=== PATIENT | male | born 1960 | race Caucasian/White ===

== ENCOUNTER → 2016-07-06 | Outpatient (CLI) | payer OTHER ==
[~2016-07-06] MED LIST: CYCL10TA9 PO; DICL75TA2 PO; DOCU-143 PO; HYDR30CR71 RC; LEVO75TA6 PO; METH4TAB PO; MIRT15TA6 PO; SERT50TA2 PO; TRAM-42 PO
--- NOTE | 2016-07-06 12:19 | Diagnostic Imaging Report ---
Right hip. INDICATION: Hip pain. 2 views were obtained. There are no prior right hip studies available for comparison. This exam is less than optimal as the patient is wearing close. FINDINGS: No fracture, dislocation or acute bony abnormality evident. The hip joint is fairly well-maintained and shows only mild degenerative disease. The soft tissues are unremarkable for an acute abnormality. There are several phleboliths present low in the pelvis on the right. IMPRESSION: There is no evidence for an acute bony abnormality. Dictated by: Dictated on workstation # [id number]
== END ==
LOC: RT 09:32
PROVIDERS: ATTEND Neuromusculoskeletal Medicine, Sports Medicine
DX: Z02.71 Encounter for disability determination (principal)
CPT/HCPCS: 73502; 94060

== ENCOUNTER → 2017-04-10 | Outpatient (CLI) | payer MEDICAID ==
--- NOTE | 2017-04-10 12:39 | Diagnostic Imaging Report ---
PROCEDURE: MRI lumbar spine. TECHNIQUE: Multiplanar, multisequence MRI of the lumbar spine was performed without contrast. INDICATION: Low back pain after heavy lifting. COMPARISON: Comparison made with prior examination from 02/20/2016. FINDINGS: The alignment of the lumbar spine is normal. The vertebral body heights are well maintained. There is no spondylolysis or spondylolisthesis. No fractures are identified. Conus medullaris is seen at L1 and is normal in appearance. The T12-L1 disc is unremarkable. The L1-L2 disc is unremarkable. The L2-L3 disc is unremarkable. There is some hypertrophic degenerative facet disease at this level. At L3-L4, there is slight loss of disc height and signal intensity. There is some broad-based annular bulging, facet disease, and thickening of the ligamentum flavum. There is mild central spinal stenosis with encroachment upon the lateral recess bilaterally. There is minimal bilateral neuroforaminal encroachment. At L4-L5, there is loss of disc height and signal intensity. There is broad-based annular bulging, facet disease, and thickening of the ligamentum flavum. There is [id number]-he-[id number] central spinal stenosis with encroachment upon the lateral recess bilaterally. There is moderate bilateral neuroforaminal encroachment, right greater than left. There is also some increased T2 signal intensity within the posterior central annulus, suspect for annular fissural tear. At L5-S1, there is broad-based annular bulging. There is slight effacement of the ventral thecal sac and some minimal neuroforaminal encroachment. The abdominal aorta is nonaneurysmal. The soft tissues are unremarkable. IMPRESSION: Multilevel lower lumbar degenerative disc disease, as detailed above. Dictated by: Dictated on workstation # [id number]
== END ==
LOC: RAD 11:24
PROVIDERS: ATTEND Anesthesiology
DX: M48.061 Spinal stenosis, lumbar region without neurogenic claudication (principal); M51.17 Intervertebral disc disorders with radiculopathy, lumbosacral region; M47.26 Other spondylosis with radiculopathy, lumbar region; X50.9XXA Other and unspecified overexertion or strenuous movements or postures, initial encounter
CPT/HCPCS: 72148

== ENCOUNTER 2020-01-03 06:41 | Emergency (ER) | payer MEDICAID ==
[~2020-01-03] VITALS: Ht 177 cm; Wt 54.0 kg
[2020-01-03 06:50] VITALS: BP 139/110
--- NOTE | 2020-01-03 07:12 | ED EENT ---
History of Present Illness General Stated Complaint: HARD TO SWALLOW,STS SMOKERS COUGH Source: patient Exam Limitations: no limitations History of Present Illness Date Seen by Provider: Jan 03, 2020 Time Seen by Provider: 06:57 Initial Comments Patient is a 59-year-old male who presents to the emergency department today with a chief complaint of painful swallowing. Patient relates that 4 to 5 days ago he had a coughing spell and he had sudden severe pain in his throat area. He states he has been "sore ever since". He states his throat is tender when he swallows. He is suffering from some sinus drainage and he states he has been the most discomfort at this point on the left side of his throat. He states that gargling with cold water seem to help a little bit this morning. He denies any voice changes or hoarseness. He denies any hemoptysis. He denies any shortness of breath. He is never had an episode like this before. He has a history of hyperthyroidism status post radiation treatment and is currently on thyroid replacement medications. He was able to take these medications this morning. History of severe acid reflux status post hiatal hernia replacement doing well. Patient does smoke cigarettes occasional THC and occasional alcohol. All other review of systems reviewed negative except as stated above. Timing/Duration: abrupt Location: throat Prearrival Treatment: no prearrival treatment Modifying Factors: Improves With Other (Cold water gargles) Associated Symptoms: No drooling, No facial pain/swelling, No fever, No malaise, No sinus infection; sore throat; No voice change Allergies and Home Medications Allergies Coded Allergies: No Known Drug Allergies (Unverified , 11/11/15) Home Medications Cyclobenzaprine HCl 10 Mg Tablet, 10 MG PO Q8H Prescribed by: ALEJANDRINA YATES on 02/14/16 1330 Docusate Sodium 100 Mg Capsule, 100 MG PO DAILY Prescribed by: CHRISSY SEVERINO on 10/12/15 1530 Levothyroxine Sodium 75 Mcg Tablet, 75 MCG PO DAILY, (Reported) Methylprednisolone 4 Mg Tab.ds.pk, 4 MG PO UD Prescribed by: ALEJANDRINA YATES on 02/14/16 133 Sertraline HCl 50 Mg Tablet, 50 MG PO DAILY, (Reported) Tramadol HCl 50 Mg Tablet, 50 MG PO Q4H Prescribed by: ALEJANDRINA YATES on 02/14/16 1330 Patient Home Medication List Home Medication List Reviewed: Yes Review of Systems Review of Systems Constitutional: no symptoms reported Eyes: No Symptoms Reported Ears: No Symptoms Reported Nose: no symptoms reported Mouth: denies clots, denies swelling, denies bloody discharge, denies serosanguinous discharge Throat: see HPI, pain; denies neck stiffness, denies hoarse, denies aphonia, denies muffled; painful swallowing; denies difficulty with fluids Respiratory: no symptoms reported; No dyspnea on exertion Cardiovascular: no symptoms reported; No chest pain Gastrointestinal: no symptoms reported Musculoskeletal: no symptoms reported Skin: no symptoms reported Neurological: No Symptoms Reported Hematologic/Lymphatic: Swollen Glands (Left-sided throat) All Other Systems Reviewed Negative Unless Noted: Yes Past Cfneams-Srvjbp-Trhkaw Hx Patient Social History Recreational Drug Use: Yes Drug of Choice: THC Smoking Status: Current Everyday Smoker Type Used: Cigarettes Recent Foreign Travel: No Contact w/Someone Who Travel: No Recent Hopitalizations: No Seasonal Allergies Seasonal Allergies: No Past Medical History Abdominal COPD Prostate Problems Hemorrhoids Chronic Back Pain Hypothyroidsim Physical Exam Vital Signs Vital Signs - First Documented 01/03/20 06:50 Temp 36.6 Pulse 70 Resp 16 B/P (MAP) 139/110 (120) Pulse Ox 100 Height, Weight, BMI Height: 5'10.00" Weight: 130lbs. 0.0oz. [id number]; 16.4 BMI Method:Stated General Appearance: WD/WN, no apparent distress Eyes: bilateral eye normal inspection, bilateral eye PERRL, bilateral eye EOMI Ears: bilateral ear auricle normal Nose: normal inspection Mouth/Throat: normal mouth inspection, pharynx normal; No excessive drooling; pharynx tenderness; No tongue swollen, No tonsillar exudate, No tonsillar swelling, No trismus, No uvula swelling, No voice changes Neck: full range of motion, supple, lymphadenopathy (L) (1 cm lymph node palpable just submandibular on the left, no fluctuance, no overlying erythema) Cardiovascular: normal peripheral pulses Respiratory: chest non-tender, lungs clear, normal breath sounds, no respiratory distress, no accessory muscle use Neurologic/Psychiatric: 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 Patient was concerned today for a possible "ruptured tonsil". Evaluation today includes a physical exam. Remarkable for some left- sided submandibular lymphadenopathy. No evidence for pneumothorax, subcutaneous emphysema, hemorrhage, or any other acute/life-threatening pathology. Patient is strongly counseled on smoking cessation. He is strongly encouraged to follow-up with his primary care physician regarding the swollen lymph node underneath his left mandible. He verbalized understanding all questions are sought and answered and he is stable for discharge. Departure Impression Primary Impression: Sore throat Additional Impression: Lymphadenopathy of left cervical region Disposition: HOME, SELF-CARE Condition: Stable Departure-Patient Inst. Decision time for Depature: 07:15 Referrals: JOSE STUBBS MD (PCP/Family) Primary Care Physician Patient Instructions: Sore Throat in Adults Add. Discharge Instructions: Continue to do soothing, cold water gargles as needed for pain. You can also take your naproxen medication with food for discomfort. Please call your primary care doctor for a follow-up appointment regarding the swollen lymph node in the left side of your neck. You should strongly consider quitting smoking. Please come back to the emergency department if you develop any increased pain, a hoarse voice, shortness of breath or any other emergent, concerning symptoms. Copy Copies To 1: JOSE STUBBS MD, KATHRYN M MD Jan 03, 2020 07:12
== END 2020-01-03 07:19 | disposition home or self-care (01) ==
LOC: EDUNIT# 06:41 → ER 06:44
DX: J02.9 Acute pharyngitis, unspecified (principal); R59.1 Generalized enlarged lymph nodes; J44.9 Chronic obstructive pulmonary disease, unspecified; E03.9 Hypothyroidism, unspecified; F17.210 Nicotine dependence, cigarettes, uncomplicated; Z79.890 Hormone replacement therapy; Z79.52 Long term (current) use of systemic steroids